=== PATIENT | female | born 1945 | race Caucasian/White ===

== ENCOUNTER → 2018-01-01 | Outpatient (CLI) | payer MEDICARE, OTHER ==
[~2018-01-01] MED LIST: AMOCLA500; QUIN5
== END ==
LOC: LAB SHORT 12:25 → LAB EV 12:25
DX: N39.0 Urinary tract infection, site not specified (principal)
CPT/HCPCS: 87086

== ENCOUNTER → 2018-01-20 | Outpatient (CLI) | payer MEDICARE, OTHER ==
[2018-01-20 17:40] LABS: Appearance, Urine Clear (Clear); Bilirubin, Urine Neg (Neg); Blood, Urine 1+ (Neg); Color, Urine Yellow (P-Yellow); Glucose Qualitative, Urine 4+ (Neg); Ketones, Urine Neg (Neg); Leukocyte Esterase, Urine Neg (Neg); Nitrite, Urine Neg (Neg); Protein, Urine Neg (Neg); Urobilinogen, Urine NORM (Normal)
[2018-01-20 18:05] LABS: Bacteria Not Seen /hpf; Red Blood Cells, Urine 0-2 /hpf (0-2); Squamous Epithelial Cells Few /hpf (Few); White Blood Cells, Urine Not Seen /hpf (0-5)
== END ==
LOC: LAB 16:00 → LAB SHORT 16:00
PROVIDERS: Nurse Practitioner
DX: N39.0 Urinary tract infection, site not specified (principal)
CPT/HCPCS: 81001

== ENCOUNTER → 2019-01-05 | Outpatient (CLI) | payer MEDICARE, OTHER | END | disposition home or self-care (01) | LOC: PLD 10:53 → LAB SHORT 10:53 | DX: L08.89 Other specified local infections of the skin and subcutaneous tissue (principal) | CPT/HCPCS: 88305; 88312 ==

== ENCOUNTER 2019-04-04 10:02 | Day surgery (SDC) | payer MEDICARE, OTHER ==
[~2019-04-04] VITALS: Ht 157.5 cm; Wt 94.0 kg
[~2019-04-04 10:02] MED LIST changes: +Daily Multiple1 EACH PO; +INSULANPEN SC; +LOSA50 PO; +Lipitor20 MG PO; +METO100 PO; +NITR.4SL SL; +NOVOLOG FL100 UNIT/1 SC; +Omega 3 1,0001 EACH PO
== END 2019-04-04 12:35 | disposition home or self-care (01) ==
LOC: ORSCSDS 10:02
PROVIDERS: Internal Medicine Gastroenterology
PROC: 0DBN8ZX Excision of Sigmoid Colon, Via Natural or Artificial Opening Endoscopic, Diagnostic (ICD-10-PCS; principal; 2019-04-04 11:45)
PROC: 0DBL8ZX Excision of Transverse Colon, Via Natural or Artificial Opening Endoscopic, Diagnostic (ICD-10-PCS; principal; 2019-04-04 11:45)
PROC: 0DBH8ZX Excision of Cecum, Via Natural or Artificial Opening Endoscopic, Diagnostic (ICD-10-PCS; principal; 2019-04-04 11:45)
PROC: 0DBK8ZX Excision of Ascending Colon, Via Natural or Artificial Opening Endoscopic, Diagnostic (ICD-10-PCS; principal; 2019-04-04 11:45)
DX: Z12.11 Encounter for screening for malignant neoplasm of colon (principal); D12.0 Benign neoplasm of cecum; D12.2 Benign neoplasm of ascending colon; D12.3 Benign neoplasm of transverse colon; D12.5 Benign neoplasm of sigmoid colon; K57.30 Diverticulosis of large intestine without perforation or abscess without bleeding; K64.8 Other hemorrhoids; E11.9 Type 2 diabetes mellitus without complications; Z86.010 Personal history of colon polyps; Z87.891 Personal history of nicotine dependence; I10 Essential (primary) hypertension; Z79.4 Long term (current) use of insulin; Z79.899 Other long term (current) drug therapy
CPT/HCPCS: 82947; 88305; J2704; J7120

== ENCOUNTER 2020-05-12 17:38 | Inpatient (IN) | payer MEDICARE, OTHER ==
[~2020-05-12] VITALS: Ht 157.5 cm; Wt 102.3 kg
[~2020-05-12 17:38] MED LIST changes: -LOSA50 PO; -Lipitor20 MG PO; -METO100 PO
[2020-05-12 18:20] LABS: BASOPHILS ABSOLUTE AUTO 0.02 K/mm3 (0.00-0.23); BASOPHILS PERCENT AUTO 0 % (0-2); EOSINOPHILS ABSOLUTE AUTO 0.07 K/mm3 (0.00-0.68); EOSINOPHILS PERCENT AUTO 1 % (0-6); Hematocrit 35.2 % (33.0-51.0); Hemoglobin 11.4 g/dL (11.5-16.0); IMMATURE GRAN ABSOLUTE AUTO 0.02 K/mm3 (0.00-0.10); IMMATURE GRAN PERCENT AUTO 0 % (0-1); LYMPHOCYTES ABSOLUTE AUTO 1.52 K/mm3 (0.84-5.20); LYMPHOCYTES PERCENT AUTO 20 % (21-46); MONOCYTES ABSOLUTE AUTO 0.72 K/mm3 (0.16-1.47); MONOCYTES PERCENT AUTO 9 % (4-13); Mean Corpuscular HGB 29.8 pg (26.0-34.0); Mean Corpuscular HGB Conc 32.4 g/dL (31.5-36.5); Mean Corpuscular Volume 92 fL (80-100); Mean Platelet Volume 11.5 fL (9.1-12.4); NEUTROPHILS ABSOLUTE AUTO 5.46 K/mm3 (1.96-9.15); NEUTROPHILS PERCENT AUTO 70 % (41-73); Platelet Count 187 K/mm3 (150-400); RDW Coefficient Variation 13.6 % (11.7-14.2); RDW Standard Deviation 46.3 fL (35.1-46.3); Red Blood Cell Count 3.82 M/mm3 (3.80-5.20); White Blood Cell Count 7.81 K/mm3 (4.00-11.30)
[2020-05-12 18:38] LABS: Alanine Aminotransfer (ALT/SGP 84 U/L (12-78); Albumin, Blood 2.9 g/dL (3.4-5.0); Albumin/Globulin Ratio 0.8 (0.8-1.8); Alk Phos 133 U/L (50-136); Anion Gap 8 mmol/L (6-16); Aspartate Aminotrans (AST/SGOT 45 U/L (12-37); Bilirubin, Total 0.7 mg/dL (0.1-1.0); Blood Urea Nitrogen 29 mg/dL (8-24); Bun/Creatinine Ratio 27.9 (12.0-20.0); CO2, Blood 20 mmol/L (21-32); Calcium, Blood 10.8 mg/dL (8.5-10.1); Chloride, Blood 113 mmol/L (98-108); Creatinine, Blood 1.04 mg/dL (0.40-1.00); Globulin, Blood 3.6 g/dL (2.2-4.0); Glomerular Filtration Rate 55 (60-); Glucose, Blood 205 mg/dL (70-99); Potassium, Blood 3.7 mmol/L (3.5-5.5); Sodium, Blood 141 mmol/L (136-145); Total Protein, Blood 6.5 g/dL (6.4-8.2); Troponin I <0.015 ng/mL (0.000-0.040)
[2020-05-12 19:51] LABS: Source, Urine Clean Catch
[2020-05-12 19:59] LABS: Appearance, Urine Cloudy (Clear); Bilirubin, Urine Neg (Neg); Blood, Urine 2+ (Neg); Color, Urine Yellow (P-Yellow); Glucose Qualitative, Urine 1+ (Neg); Ketones, Urine Neg (Neg); Leukocyte Esterase, Urine 3+ (Neg); Nitrite, Urine Neg (Neg); Protein, Urine 3+ (Neg); Specific Gravity, Urine 1.025 (1.003-1.022); Urobilinogen, Urine NORM (Normal)
[2020-05-12 20:10] LABS: Red Blood Cells, Urine 0-2 /hpf (0-2); Squamous Epithelial Cells Mod /hpf (Few); White Blood Cells, Urine TNTC /hpf (0-5)
[2020-05-12 20:11] LABS: Bacteria Few /hpf
[2020-05-12] MEDS ORDERED: METO100ER PO (20:39)
[2020-05-12] MEDS ORDERED: NOVOLIN 70100 UNIT/4 SC (20:40)
[2020-05-12] MEDS ORDERED: Lipitor20 MG PO (20:41)
[2020-05-12] MEDS ORDERED: HYDCHL25 PO (20:42)
[2020-05-12] MEDS ORDERED: LOSA50 PO (20:43)
[2020-05-12] MEDS ORDERED: Aspir 8181 MG PO (20:45)
[2020-05-12] MEDS ORDERED: POTASSIUM GLUCO99 M1 PO (20:45)
--- NOTE | 2020-05-12 22:25 | NUR ---
ASSUMED CARE NOTE: ASSUMED CARE OF PT AT 2225, RECEVIED REPORT FROM MILAGROS PERRY. PT IS ALERT AND ORIENTEDX4. ABLE TO RECALL RECENT AND REMOTE EVENTS. PT IS IN SR WITH 2ND DEGREE HEART BLOCK, HR IN THE 50'S. BP ELEVATED, MEDS GIVEN PER EMAR. BOWEL TONES ACTIVE IN ALL QUADRANTS. BLE EDEMA X3, NOTED. PT AMBULATED TO TOILET WITH MININAL ASSISTANCE. STEADY ON HER FEET. PT IS ANXIOUS. BED AT LOWEST LEVEL CALL LIGHT WITHIN REACH.
--- NOTE | 2020-05-13 00:59 | NUR ---
CALLED REGARDING ELEVATED BP, ONE TIME ORDER FOR 10MG OF HYDRALIZINE GIVEN. INFORMED DR THAT PT WAS REQUESTING ANXIETY MEDS, ORDERS GIVEN. PT IS ANXIOUS, NO EFFECTIVE COPING SKILLS NOTED.
[2020-05-13 03:51] LABS: BASOPHILS ABSOLUTE AUTO 0.04 K/mm3 (0.00-0.23); BASOPHILS PERCENT AUTO 0 % (0-2); EOSINOPHILS ABSOLUTE AUTO 0.02 K/mm3 (0.00-0.68); EOSINOPHILS PERCENT AUTO 0 % (0-6); IMMATURE GRAN ABSOLUTE AUTO 0.04 K/mm3 (0.00-0.10); IMMATURE GRAN PERCENT AUTO 0 % (0-1); LYMPHOCYTES ABSOLUTE AUTO 1.13 K/mm3 (0.84-5.20); LYMPHOCYTES PERCENT AUTO 9 % (21-46); MONOCYTES ABSOLUTE AUTO 0.79 K/mm3 (0.16-1.47); MONOCYTES PERCENT AUTO 6 % (4-13); Mean Corpuscular HGB 29.6 pg (26.0-34.0); Mean Corpuscular HGB Conc 32.4 g/dL (31.5-36.5); Mean Corpuscular Volume 91 fL (80-100); Mean Platelet Volume 11.4 fL (9.1-12.4); NEUTROPHILS ABSOLUTE AUTO 10.35 K/mm3 (1.96-9.15); NEUTROPHILS PERCENT AUTO 84 % (41-73); Platelet Count 204 K/mm3 (150-400); RDW Coefficient Variation 13.5 % (11.7-14.2); RDW Standard Deviation 45.5 fL (35.1-46.3); Red Blood Cell Count 3.72 M/mm3 (3.80-5.20); White Blood Cell Count 12.37 K/mm3 (4.00-11.30)
[2020-05-13 04:05] LABS: Anion Gap 10 mmol/L (6-16); Blood Urea Nitrogen 26 mg/dL (8-24); Bun/Creatinine Ratio 28.7 (12.0-20.0); CO2, Blood 19 mmol/L (21-32); Calcium, Blood 10.3 mg/dL (8.5-10.1); Chloride, Blood 114 mmol/L (98-108); Creatinine, Blood 0.91 mg/dL (0.40-1.00); Glomerular Filtration Rate >60 (60-); Glucose, Blood 250 mg/dL (70-99); Potassium, Blood 3.5 mmol/L (3.5-5.5); Sodium, Blood 143 mmol/L (136-145)
--- NOTE | 2020-05-13 04:54 | NUR ---
CALLED REGARDING ELEVATED BP. PT'S BP MAINTAINING 180/80'S, PHYSICAN STS THAT IS OKAY FOR NOW. IF BP CONTINUES TO RISE WITHIN AN HOUR, GIVE ANOTHER 10MG OF HYDRALIZINE IV.
--- NOTE | 2020-05-13 06:21 | NUR ---
SHIFT SUMMARY: PT CONTINUES TO HAVE HIGH BLOOD PRESSURE. PT HAS BEEN GIVEN HYDRALIZINE PRN ORDERED, NO OTHER BP MEDS GIVEN. PT IS VERY ANXIOUS, CONSTANTLY ASKING FOR BP READING AND STS " THIS IS BAD, I KNOW THIS IS SERIOUS AND I MIGHT " PT IS GIVEN REASSURANCE THAT WE ARE TAKING CARE OF HER NEEDS. PT HAS NOT SLEPT ALL SHIFT. ATIVAN WAS GIVEN A ONE TIME ORDER THIS SHIFT. PT HAS BEEN GETTING OUT OF BED WITH ONE PERSON ASSIST TO USE THE BEDSIDE TOILET, MINIMAL ASSISTANCE REQUIRED. PT USES CALL LIGHT APPROPRIATLY. BED AT LOWEST LEVEL, CALL LIGHT WITHIN REACH. WILL CONTINUE TO MONITOR PT UNTIL REPORT IS GIVEN TO ONCOMING SHIFT.
[2020-05-13 09:13] LABS: Magnesium, Blood 1.9 mg/dL (1.6-2.4); Thyroid Stimulating Hormone 1.83 uIU/mL (0.360-4.800)
--- NOTE | 2020-05-13 13:04 | NUR ---
Echocardiogram completed.
--- NOTE | 2020-05-13 14:01 | NUR ---
late enrty am note...PT BP ELEVATED NOTED AND PRNS GIVEN. PT VERY ANXIOUS DISPITE EDUCATION AND REASSURANCE. PT DENIES PAIN, SOB, OR DISTRESS OTHER THAN ANXIETY. PT AND CALLED AND PROCEDURE EXPLAINED. PT REMAINS IN 2 DEG HEART BLOCK. PT IS UP TO TOILET WITH ASSISTANCE AND VOIDING.
--- NOTE | 2020-05-13 14:07 | NUR ---
ABOUT 1245 DR MICHELLE IN TO ASSESS PT AND OBTAIN CONSENT FOR PACER 05/14/20. PT ABX GIVEN PO FOR SL UTI. PT IS LESS ANXIOUS WITH IV ATIVAN. 1405 PT JUST IN TO VISIT. WILL FOLLOW.
--- NOTE | 2020-05-13 16:20 | NUR ---
APPROX 1515 DR MICHELLE CALLED AND WILL RUN BNP AND RX BP WITH LASIX IF BNP >100. PT WAS COACHED ON THE EFECTS OF LASIX. PT IS IN THE ROOM AND VISITING. PACER IS PENDING FOR 05/14 BUT NO TIME YET DETERMINED.
--- NOTE | 2020-05-13 18:08 | NUR ---
CALLED AND SPOKE WITH DR MICHELLE AT APPROX. 1745 AND ADDRESSES PT SBP OF 170-[address] MICHELLE WANTS TO DEANA A LITTLE LONGER ON LASIX DOSE AND USE ANTI-ANXIETY MEDS THIS HS AND FOLLOW THIS FOR NOW. PT IS SETTING UP EATING AND DENIES PAIN OR DISTRESS CURRENTLY. HAS ONLY BEEN UP X1 TO VOID POST LASIX AND DR MICHELLE ALSO MADE AWARE OF THIS. HAS BEEN IN ROOM VISITING AND SEEM TO BE A CALMING EFFECT FOR PT. PT INSTRUCTED RE AVALIBILITY OF ANXIETY TONIGHT.
--- NOTE | 2020-05-13 19:00 | NUR ---
ASSUMED CARE NOTE: ASSUMED CARE OF PT AT 1900, RECEVIED REPORT FROM KRISSY PERRY. PT IS ALERT AND ORIENTEDX3. ABLE TO COMMUNICATE NEEDS. PT IS ANXIOUS, DOES FAIRLY WELL WITH REASSURANCE. PT REQUESTING ANXIETY MEDS. PT IS ON RA WITH SPO2 AT 98% LUNG SOUNDS CLEAR T/O. PT IS IN SR WITH 2ND DEGREE HB, HR IN THE 50'S. PT HR LOWERS INTO THE HIGH 40'S WHEN SLEEPING. SBP IN THE 180'S. PT WILL BE NPO AT MIDNIGHT.
--- NOTE | 2020-05-13 21:40 | NUR ---
CALLED REGARDING PT'S INABILITY TO EMPTY BLADDER. PT BECOMES VERY SOB WITH WALKING TO BEDSIDE COMMODE, NO SPO2 CHANGES NOTED WITH AMBULATION. PT STS " IT TAKES IT OUT OF ME" BLADDER SCAN PERFORMED, 298ML IN BLADDER POST VOID. ORDERS FOR LOONEY PLACE, TO MONITOR I AND O'S . 16F LOONEY PLACED, DIFFICULT INSERTION, 400ML OUTPUT WITHIN THE FIRST 15MINUTES. URINE SAMPLE SENT TO LAB.
[2020-05-13 21:56] LABS: Source, Urine Catheter
[2020-05-13 21:58] LABS: Bilirubin, Urine Neg (Neg); Blood, Urine Neg (Neg); Glucose Qualitative, Urine 1+ (Neg); Ketones, Urine 1+ (Neg); Leukocyte Esterase, Urine Neg (Neg); Nitrite, Urine Neg (Neg); Protein, Urine 1+ (Neg); Specific Gravity, Urine 1.015 (1.003-1.022); Urobilinogen, Urine NORM (Normal)
[2020-05-13 21:59] LABS: Appearance, Urine Clear (Clear); Color, Urine Yellow (P-Yellow)
[2020-05-14 03:22] LABS: BASOPHILS ABSOLUTE AUTO 0.04 K/mm3 (0.00-0.23); BASOPHILS PERCENT AUTO 0 % (0-2); EOSINOPHILS ABSOLUTE AUTO 0.02 K/mm3 (0.00-0.68); EOSINOPHILS PERCENT AUTO 0 % (0-6); Hematocrit 34.6 % (33.0-51.0); Hemoglobin 11.3 g/dL (11.5-16.0); IMMATURE GRAN ABSOLUTE AUTO 0.06 K/mm3 (0.00-0.10); IMMATURE GRAN PERCENT AUTO 0 % (0-1); LYMPHOCYTES PERCENT AUTO 10 % (21-46); MONOCYTES PERCENT AUTO 7 % (4-13); Mean Corpuscular HGB 29.9 pg (26.0-34.0); Mean Corpuscular HGB Conc 32.7 g/dL (31.5-36.5); Mean Corpuscular Volume 92 fL (80-100); NEUTROPHILS ABSOLUTE AUTO 11.19 K/mm3 (1.96-9.15); NEUTROPHILS PERCENT AUTO 82 % (41-73); Platelet Count 273 K/mm3 (150-400); RDW Standard Deviation 46.6 fL (35.1-46.3); Red Blood Cell Count 3.78 M/mm3 (3.80-5.20); White Blood Cell Count 13.71 K/mm3 (4.00-11.30)
[2020-05-14 03:41] LABS: Calcium, Blood 11.1 mg/dL (8.5-10.1); Creatinine, Blood 1.36 mg/dL (0.40-1.00); Potassium, Blood 3.8 mmol/L (3.5-5.5)
--- NOTE | 2020-05-14 04:10 | NUR ---
CALLED REGARDING LABS, AND BLOOD PRESSURE, AWAITING FOR CALL BACK
--- NOTE | 2020-05-14 04:14 | NUR ---
SPOKE TO REGARDING SBP IN THE 180-190, NO NEW ORDERS GIVEN DUE TO BP ELEVATION R/T 2ND DEGREE HB. CONTINUE WITH HYDRALYZINE PRN ORDERED
--- NOTE | 2020-05-14 05:56 | NUR ---
SHIFT SUMMARY: SEE PREVIOUS NOTES. NO SIGNIFICANT CHANGES. PT CONTINUES TO HAVE SBP IN THE 180'S, WHEN HYDRALYZINE IS GIVEN SBP DROPS BY 10 POINTS, AWARE. PT GIVEN ATIVAN Q4HR FOR ANXIETY, GOOD EFFECT NOTED. PT HR HAS BEEN IN THE 40'S, WHILE SLEEPING AND WILL ELEVATE INTO THE 60'S. LOONEY WAS PLACED THIS SHIFT, DRAINING TO GRAVITY MAKENNA COLORED URINE. PT REPOSITONS SELF, HAS TO BE REMINDED OF LINES AND TUBES. PT HAS BEEN NPO SINCE MID NIGHT. WILL CONTINUE TO MONITOR PT UNTIL REPORT IS GIVEN TO ONCOMING NURSE.
--- NOTE | 2020-05-14 10:28 | NUR ---
LATE AM NOTE ... PT A/O STATES SHE SLEPT WELL. BP IS SL DOWN NOTED AND WILL FOLLOW. DR MICHELLE IN TO EVALUATE PT AND RECOMMENDING DELAY TO PACER PLACEMENT DUE TO INC. WBC, SL UTI, AND RECENT HX ABX USE FOR PNEUMONIA. PT SETTING UP FEEDING SELF. URINE IS NOTED PER CURRENT CATH AND IS MAKENNA WITH SOME SEDIMENT NOTED. 2 DEGREE HEART BLOCK WITH HR NOTED.
--- NOTE | 2020-05-14 17:38 | NUR ---
PT A/O VISITING WITH . PT U.O. LOW AND NEW ORDER OBTAINED FOR MAINTANCE FLUIDS NS AT 50ML. CBG LEVELS IMPROVING. PT IS NOTED WITH VERY SLIGHT CRACKLES AND IS SL SOB WITH EXERSION. WILL MONITOR. REMAINS 2 DEG. HEART BLOCK WITH HR 50 AND IN TO 40'S WHEN SLEEPING. ANXIETY HAS IMPORVED WITH ATIVAN AND NO DAY SHIFT DOSES NEEDED FOR SLEEP.
--- NOTE | 2020-05-14 19:06 | NUR ---
Per admit trigger, I met with Mrs. Leahy to offer education about ACP. She was very interested in completing an advanced directive. I answered her questions and explained forms. She plans on speaking with spouse about this. Advised I would remain available to assist in completion this hospitalization if she desired.
--- NOTE | 2020-05-14 21:00 | NUR ---
ASSUMED CARE AFTER BEDSIDE REPORT. PT IS ALERT, DENIES DISCOMFORT, ADMITS TO ANXIETY AND ASKS FOR MED TO "HELP HER RELAX". PT IS ON RA AND SATS MID 90'S. NOTED W END EXPIRATORY "GRUNT", AND MILD DSYPNEA W EXERTION. PT DID OWN HS CARE. BP CONT ELEVATED, AN PT MED W HYDRALAZINE ORDERED. MONITOR SHOWS 2ND DEGREE HB, RATE 40'S TO 60. PAS REAPPLIED. LOONEY DRNG CL YELLOW URINE. PLAN FOR PACER IN AM, PT WILL BE NPO AFTER MIDNOC. ENC OFFERED TO PT RE PROCEDURE, AND MED W ATIVAN. CALL LIGHT IN REACH.
--- NOTE | 2020-05-15 00:34 | NUR ---
PT CONT RESTING QUIETLY. CONT W 2ND DEGREE HB, BP ELEVATED EVEN AFTER HYDRALAZINE. CONT TO MONITOR, ENC REST SECONDARY TO ANXIETY. CALL LIGHT NOTED TO BE AT PT SIDE, IN REACH.
[2020-05-15 03:21] LABS: BASOPHILS ABSOLUTE AUTO 0.04 K/mm3 (0.00-0.23); BASOPHILS PERCENT AUTO 0 % (0-2); EOSINOPHILS ABSOLUTE AUTO 0.17 K/mm3 (0.00-0.68); EOSINOPHILS PERCENT AUTO 2 % (0-6); Hematocrit 34.6 % (33.0-51.0); Hemoglobin 10.9 g/dL (11.5-16.0); IMMATURE GRAN ABSOLUTE AUTO 0.04 K/mm3 (0.00-0.10); IMMATURE GRAN PERCENT AUTO 0 % (0-1); LYMPHOCYTES ABSOLUTE AUTO 1.54 K/mm3 (0.84-5.20); LYMPHOCYTES PERCENT AUTO 16 % (21-46); MONOCYTES ABSOLUTE AUTO 0.79 K/mm3 (0.16-1.47); MONOCYTES PERCENT AUTO 8 % (4-13); Mean Corpuscular HGB 28.9 pg (26.0-34.0); Mean Corpuscular HGB Conc 31.5 g/dL (31.5-36.5); Mean Corpuscular Volume 92 fL (80-100); Mean Platelet Volume 10.5 fL (9.1-12.4); NEUTROPHILS ABSOLUTE AUTO 7.34 K/mm3 (1.96-9.15); NEUTROPHILS PERCENT AUTO 74 % (41-73); Platelet Count 241 K/mm3 (150-400); RDW Coefficient Variation 14.1 % (11.7-14.2); RDW Standard Deviation 47.1 fL (35.1-46.3); Red Blood Cell Count 3.77 M/mm3 (3.80-5.20); White Blood Cell Count 9.92 K/mm3 (4.00-11.30)
[2020-05-15 03:39] LABS: Albumin, Blood 2.7 g/dL (3.4-5.0); Albumin/Globulin Ratio 0.8 (0.8-1.8); Bilirubin, Total 0.6 mg/dL (0.1-1.0); Bun/Creatinine Ratio 22.7 (12.0-20.0); Calcium, Blood 11.2 mg/dL (8.5-10.1); Creatinine, Blood 1.54 mg/dL (0.40-1.00); Globulin, Blood 3.3 g/dL (2.2-4.0); Magnesium, Blood 2.2 mg/dL (1.6-2.4); Phosphorus, Blood 2.8 mg/dL (2.5-4.9); Potassium, Blood 3.6 mmol/L (3.5-5.5)
[2020-05-15 03:48] LABS: C-REACTIVE PROTEIN, EXT RANGE 0.872 mg/dL (0.000-0.300)
--- NOTE | 2020-05-15 06:00 | NUR ---
PT AWAKE, RESTLESS, BUT DECLINES ATIVAN. WAS MED W HYDRALAZINE 20MG AT 0324. PAS REMOVED PER PT REQUEST, CO LEGS ITCHING. PT NPO FOR POSSIBLE PACER THIS AM. CONT 2ND DEGREE HB RATE 40-50'S. CALL LIGHT IN REACH.
--- NOTE | 2020-05-15 09:50 | NUR ---
AM NOTE... ASSUMED CARE OF PT APROX 0700, PT IS A&Ox4 AND WAS ADMITTED WITH A TYPE 2 HEART BLOCK, CURRENTLY PT'S HR IS IN THE 40'S-50'S. PT DENIES CHEST PAIN/PRESSURE BUT C/O OF SOB THAT INCREASES W/EXERTION. PT IS HYPERTENSIVE WITH SBP IN 190'S-200'S. PT HAS 1+ EDEMA NOTED TO HER BLE. L/S CLEAR IN THE UPPER LOBES AND DIM IN THE BASES. BT PRESENT AND HYPOACTIVE, ABD IS SOFT AND NONTENDER TO PALP. PT HAS BEEN NPO SINCE MIDNIGHT FOR POSSIBLE PACER PLACEMENT TODAY. DR. MICHELLE AT THE BEDSIDE FOR ASSESSMENT. PER DR. MICHELLE HE WANTS THE PT'S HYPERTENSION BETTER CONTROLLED BEFORE GOING TO THE ENDOSCOPY TECHNICIAN, PT WAS GIVEN HER ORDERED PO MEDICATIONS PER EMAR, DR. MICHELLE ASKED TO BE UPDATED AROUND 12PM WITH PT'S CONDITION. HE ALSO STATED HE WOULD TALK TO THE ENDOSCOPY TECHNICIAN ABOUT AVAILABILITY OF TIME TO DO HER PROCEDURE TODAY VS TOMORROW. PT WAS AGREEABLE WITH THE PLAN OF CARE. CALL LIGHT IN REACH WILL CONTINUE TO MONITOR.
--- NOTE | 2020-05-15 15:24 | NUR ---
pt transfered to medical floor. more alert and still some nausea but airhunger improved with prn meds. reenforced that with good symptom mangement and support may give her a better quality of life.
--- NOTE | 2020-05-15 18:07 | NUR ---
SHIFT SUMMARY... NO ACUTE NEGATIVE CHANGES NOTED THIS SHIFT. PT'S BP HAS BEEN HYPERTENSIVE T/O SHIFT PROVIDERS ARE AWARE, PT'S BP RESPONDS WELL TO 20MG IV HYDRALAZINE. PT'S HR HAS BEEN IN THE 40'S-50'S IN AN 2ND DEGREE TYPE 2 BLOCK. PT SAT ON THE SIDE OF THE BED FOR APROX 15 MINS BUT STATED THAT SHE WAS STARTING TO FEEL "REALLY TIRED" AND THIS RN HELPED HER LAY BACK DOWN, PT WAS ABLE TO GET UP TO THE BSC TO ATTEMPT TO HAVE A BM WITH SBA APROX 1 HOUR LATER . PT BECOMES VERY SHORT OF BREATH WITH ACTIVITY AND THIS IS VERY FRUSTRATING TO THE PT, SHE BECOMES TEARFUL AND ANXIOUS DURING THESE TIMES. PT'S HAS BEEN AT THE BEDSIDE SINCE 1400. PT IS TO BE NPO AFTER MIDNIGHT FOR PACER PLACEMENT TOMORROW AT 0700. PT'S LOONEY IS PATENT AND DRAINED 350MLS OF CLEAR YELLOW URINE TO GRAVITY. CALL LIGHT IN REACH WILL CONTINUE TO MONITOR UNTIL REPORT IS GIVEN TO ONCOMING RN.
--- NOTE | 2020-05-15 21:00 | NUR ---
PT WAS SLEEPING SOUNDLY DURING SHIFT CHANGE AND BEDSIDE REPORT. PT WAS AWAKENED FOR ASSESSMENT AND HS MEDS. PT CALM, PLEASANT AND COOPERATIVE, DENIES CHEST PAIN OR OTHER DISCOMFORT. PT IS ABLE TO REPOSITION SELF IN BED, TURNS SIDE TO SIDE. REFUSED ORAL CARE TONIGHT SAYING SHE HAD DONE THIS EARLIER. DENIES QUESTIONS RE PLAN FOR PACER IN AM. PAS REPLACED, NO SKIN ISSUES. CONT W 2ND DEGREE HB, BP CONT ELEVATED, WILL MED W HYDRALAZINE PRN. PT CONT ON RA, SATS MID 90'S, ENC C&DB. CALL LIGHT IN REACH.
[2020-05-16 03:11] LABS: BASOPHILS ABSOLUTE AUTO 0.06 K/mm3 (0.00-0.23); BASOPHILS PERCENT AUTO 1 % (0-2); EOSINOPHILS ABSOLUTE AUTO 0.33 K/mm3 (0.00-0.68); EOSINOPHILS PERCENT AUTO 4 % (0-6); Hematocrit 32.6 % (33.0-51.0); Hemoglobin 10.4 g/dL (11.5-16.0); IMMATURE GRAN ABSOLUTE AUTO 0.03 K/mm3 (0.00-0.10); IMMATURE GRAN PERCENT AUTO 0 % (0-1); LYMPHOCYTES ABSOLUTE AUTO 2.02 K/mm3 (0.84-5.20); LYMPHOCYTES PERCENT AUTO 22 % (21-46); MONOCYTES ABSOLUTE AUTO 0.83 K/mm3 (0.16-1.47); MONOCYTES PERCENT AUTO 9 % (4-13); Mean Corpuscular HGB 29.4 pg (26.0-34.0); Mean Corpuscular HGB Conc 31.9 g/dL (31.5-36.5); Mean Corpuscular Volume 92 fL (80-100); Mean Platelet Volume 10.8 fL (9.1-12.4); NEUTROPHILS ABSOLUTE AUTO 5.86 K/mm3 (1.96-9.15); NEUTROPHILS PERCENT AUTO 64 % (41-73); Platelet Count 247 K/mm3 (150-400); RDW Coefficient Variation 14.2 % (11.7-14.2); RDW Standard Deviation 48.3 fL (35.1-46.3); Red Blood Cell Count 3.54 M/mm3 (3.80-5.20); White Blood Cell Count 9.13 K/mm3 (4.00-11.30)
[2020-05-16 03:27] LABS: Bun/Creatinine Ratio 21.5 (12.0-20.0); Calcium, Blood 10.4 mg/dL (8.5-10.1); Creatinine, Blood 1.49 mg/dL (0.40-1.00); Potassium, Blood 3.7 mmol/L (3.5-5.5)
--- NOTE | 2020-05-16 04:00 | NUR ---
SLEEPING WELL, AWAKE NOW, BP ELEVATED AND MED W HYDRALAZINE. PT REQUESTING ATIVAN, AND MEDICATED. NO OTHER CHANGES. CALL LIGHT IN REACH.
--- NOTE | 2020-05-16 06:34 | NUR ---
WATCHING TV. CONT TO DENY DISCOMFORT. AWAKE CALL TO STILL OPERATOR WHISKEY. CALL LIGHT IN REACH.
[2020-05-16 08:38] LABS: Influenza A, PCR Negative (NEGATIVE); Influenza B, PCR Negative (NEGATIVE); Resp Syncytial Virus, PCR Negative (NEGATIVE); SARS-Cov-2 (COVID-19) PCR, MMC Negative (NEGATIVE)
--- NOTE | 2020-05-16 11:58 | NUR ---
Pt off the unit at [facility].
--- NOTE | 2020-05-16 17:50 | NUR ---
SHIFT NOTE PT WAS TRANSFERED FROM ICU THIS AM. PT WENT TO [facility] FOR DUAL CHAMBER PACEMAKER PLACEMENT AT [facility] TODAY. PT RETURNED WITH SORENESS TO LT SHOULDER AND CHEST WALL AT THE SITE OF INSERTION. GAUZE AND CLEAR DRESSING IN PLACE. NO SWELLING OR HEMATOMA NOTED TO SITE. PT A/O X4. HTN NOTED HAS BEEN MEDICATED FOR HTN WITH SOME IMPROVEMENT
[2020-05-17 03:54] LABS: BASOPHILS ABSOLUTE AUTO 0.05 K/mm3 (0.00-0.23); BASOPHILS PERCENT AUTO 1 % (0-2); EOSINOPHILS PERCENT AUTO 6 % (0-6); Hematocrit 34.5 % (33.0-51.0); Hemoglobin 11.1 g/dL (11.5-16.0); IMMATURE GRAN ABSOLUTE AUTO 0.03 K/mm3 (0.00-0.10); IMMATURE GRAN PERCENT AUTO 0 % (0-1); LYMPHOCYTES ABSOLUTE AUTO 1.69 K/mm3 (0.84-5.20); LYMPHOCYTES PERCENT AUTO 20 % (21-46); MONOCYTES ABSOLUTE AUTO 0.79 K/mm3 (0.16-1.47); MONOCYTES PERCENT AUTO 9 % (4-13); Mean Corpuscular HGB Conc 32.2 g/dL (31.5-36.5); Mean Corpuscular Volume 93 fL (80-100); Mean Platelet Volume 10.6 fL (9.1-12.4); NEUTROPHILS ABSOLUTE AUTO 5.52 K/mm3 (1.96-9.15); NEUTROPHILS PERCENT AUTO 64 % (41-73); Platelet Count 253 K/mm3 (150-400); RDW Coefficient Variation 14.1 % (11.7-14.2); RDW Standard Deviation 48.8 fL (35.1-46.3); White Blood Cell Count 8.58 K/mm3 (4.00-11.30)
[2020-05-17 04:14] LABS: Albumin, Blood 2.7 g/dL (3.4-5.0); Albumin/Globulin Ratio 0.8 (0.8-1.8); Bilirubin, Total 0.7 mg/dL (0.1-1.0); Bun/Creatinine Ratio 21.2 (12.0-20.0); Calcium, Blood 10.9 mg/dL (8.5-10.1); Creatinine, Blood 1.51 mg/dL (0.40-1.00); Globulin, Blood 3.5 g/dL (2.2-4.0); Phosphorus, Blood 2.8 mg/dL (2.5-4.9); Potassium, Blood 3.9 mmol/L (3.5-5.5); Total Protein, Blood 6.2 g/dL (6.4-8.2)
--- NOTE | 2020-05-17 06:20 | NUR ---
SHIFT SUMMARY PT A&O; VSS; STATUS POST PACER, PACED ON TELE; PT C/O OF DISCOMFORT AT OP SITE, ICE PACK BROUGHT TO PT, TYLENOL ADMINISTERED X 2 THIS SHIFT; O2 SATS >93 ON RA; PT SLEPT SEVERAL HOURS; LOONEY PATENT & DRAINING CLEAR YELLOW; IMAGING TO TAKE PT TO POST PACER XRAY; NO DISTRESS NOTED; CALL LIGHT IN REACH; BED IN LOWEST POSITION; WILL CONTINUE TO MONITOR CLOSELY UNTIL HAND OFF TO DAY SHIFT RN.
--- NOTE | 2020-05-17 11:52 | NUR ---
PT REFUSED VITALS AND INSULIN PT DEMANDS THAT HOSPITALIST ARRIVE "NOW" TO D/C OR SHE IS LEAVING STS SHE WANTS "LEFT ALONE" THEN BEGINS SOBBING STS SHE IS "AT MY BREAKING POINT YOU GUYS HAVE DONE SO MUCH TO ME"
[2020-05-17] MEDS ORDERED: ACET325 PO (12:57)
[2020-05-17] MEDS ORDERED: AMLO10 PO (12:58)
[2020-05-17] MEDS ORDERED: CEFP200 PO (12:59)
[2020-05-17] MEDS ORDERED: OMEGA-3 FISH O1 EAC6 PO (13:02)
[2020-05-17] MEDS ORDERED: HYDR10 PO (13:03)
[2020-05-17] MEDS ORDERED: ONE DAILY ESS400 MCG PO (13:04)
[2020-05-17] MEDS ORDERED: MIRALAX17 GM PO (13:05)
[2020-05-17] MEDS ORDERED: PROBIOTIC1 EA13 PO (13:06)
--- NOTE | 2020-05-17 13:39 | NUR ---
PT'S IV REMOVED AND PRESSURE DRESSING, IV WAS INTACT. URINARY CATH REMOVED INTACT. PT PROVIDED WITH DC EDUCATION AND MEDICATION SIDE EFFECTS, PT AND FAMILY EXPRESSED UNDERSTANDING OF DC EDUCATION.
[2020-05-24 20:11] LABS: 25-HYDROXY, VITAMIN D 46 ng/mL (.); 25-HYDROXY, VITAMIN D-2 <1.0 ng/mL (.); 25-HYDROXY, VITAMIN D-3 46 ng/mL (.)
== END 2020-05-17 13:40 | disposition home or self-care (01) | DRG 243 ==
LOC: ER 17:38 → ICUE 17:39 → ICUW 17:39 → ICUE 22:31 → PCU 05-16 07:30
PROVIDERS: Emergency Medicine; Family Medicine; Hospitalist; Internal Medicine; Internal Medicine Cardiovascular Disease; Student in an Organized Health Care Education/Training Program; ADMIT Family Medicine
PROC: 0JH606Z Insertion of Pacemaker, Dual Chamber into Chest Subcutaneous Tissue and Fascia, Open Approach (ICD-10-PCS; principal; 2020-05-16)
PROC: 02H63JZ Insertion of Pacemaker Lead into Right Atrium, Percutaneous Approach (ICD-10-PCS; 2020-05-16)
PROC: 02HK3JZ Insertion of Pacemaker Lead into Right Ventricle, Percutaneous Approach (ICD-10-PCS; 2020-05-16)
DX: I44.1 Atrioventricular block, second degree (principal); I16.1 Hypertensive emergency; N39.0 Urinary tract infection, site not specified; N17.9 Acute kidney failure, unspecified; Z79.82 Long term (current) use of aspirin; Z79.4 Long term (current) use of insulin; Z87.891 Personal history of nicotine dependence; I25.10 Atherosclerotic heart disease of native coronary artery without angina pectoris; Z95.1 Presence of aortocoronary bypass graft; Z66 Do not resuscitate; E83.52 Hypercalcemia; E66.01 Morbid (severe) obesity due to excess calories; Z20.828 Contact with and (suspected) exposure to other viral communicable diseases; E11.69 Type 2 diabetes mellitus with other specified complication; Z68.39 Body mass index [BMI] 39.0-39.9, adult; I10 Essential (primary) hypertension; K59.00 Constipation, unspecified; I45.3 Trifascicular block
CPT/HCPCS: 0241U; 33208; 36415; 51703; 71045; 71046; 80048; 80053; 81001; 82947; 83735; 83880; 83970; 84100; 84145; 84443; 84484; 85025; 85651; 86140; 87086; 93005; 93010; 93306; 99152; 99153; 99285-25; A9270; A9270-GY; C1781; C1785; C1894; C1898; J0360; J1644; J1815; J1940; J2060; J2250; J3010; J3370; J7030; J7040

== ENCOUNTER → 2021-02-13 | Outpatient (CLI) | payer MEDICARE, OTHER ==
[~2021-02-13] MED LIST changes: +ACET325 PO; +AMLO10 PO; +Aspir 8181 MG PO; +CEFP200 PO; +HYDCHL25 PO; +HYDR10 PO; +LOSA50 PO; +Lipitor20 MG PO; +METO100ER PO; +MIRALAX17 GM PO; +NOVOLIN 70100 UNIT/4 SC; +OMEGA-3 FISH O1 EAC6 PO; +ONE DAILY ESS400 MCG PO; +POTASSIUM GLUCO99 M1 PO; +PROBIOTIC1 EA13 PO
== END | disposition home or self-care (01) ==
LOC: LAB 12:44 → LAB SHORT 12:44
DX: C44.319 Basal cell carcinoma of skin of other parts of face (principal)
CPT/HCPCS: 88305

== ENCOUNTER → 2021-03-21 | Outpatient (CLI) | payer MEDICARE, OTHER | LOC: LAB 12:24 → LAB SHORT 12:24 | DX: D48.5 Neoplasm of uncertain behavior of skin (principal); L72.12 Trichodermal cyst | CPT/HCPCS: 88304 ==

== ENCOUNTER → 2021-04-15 | Outpatient (CLI) | payer MEDICARE, OTHER | LOC: LAB 17:17 → LAB SHORT 17:17 | DX: R30.0 Dysuria (principal); Z88.0 Allergy status to penicillin; Z88.8 Allergy status to other drugs, medicaments and biological substances; Z88.1 Allergy status to other antibiotic agents | CPT/HCPCS: 87086 ==

== ENCOUNTER → 2021-11-27 | Outpatient (CLI) | payer MEDICARE, OTHER | END | disposition home or self-care (01) | LOC: LAB SHORT 12:47 → LAB 12:47 | DX: E11.65 Type 2 diabetes mellitus with hyperglycemia (principal); E11.29 Type 2 diabetes mellitus with other diabetic kidney complication; E11.22 Type 2 diabetes mellitus with diabetic chronic kidney disease | CPT/HCPCS: 87086 ==

== ENCOUNTER 2024-04-20 08:07 | Day surgery (SDC) | payer MEDICARE, OTHER ==
[2024-04-20] VITALS (17 sets, daily range): BP systolic 94–180; BP diastolic 46–101
[~2024-04-20] VITALS: Ht 154.9 cm; Wt 89.0 kg
[~2024-04-20 08:07] MED LIST changes: +ALBU2.5V5 INH; +ALPR.25 PO; +Lactated Ringer's 1,000 ML IV SCH; +METF500 PO; +METO50ER PO; +TRESIBA FL100 UNIT/2 SC; +propofoL 20 ML IV ONE
--- NOTE | 2024-04-20 10:11 | NUR ---
04/20/24 1011 Elvia King CONFIRMED AND REVIEWED H&P, MEDCICATIONS, ALLERGIES, MEDICAL HISTORY, RESPIRATORY HISTORY, VITAL SIGNS, 3-LEAD EKG, CONSENTS, AND PHYSICIAN ORDERS. PATIENT CONFIRMS NPO STATUS AND AGREES WITH SCHEDULED PROCEDURE. MONITOR INTACT WITH CONTINUOUS PULSE OXIMETRY, CAPNOGRAPHY, 3-LEAD EKG, INTERMITTENT BP. SUPPLEMENTAL O2 TO BE TITRATED THROUGHOUT PROCEDURE TO MAINTAIN O2 SATURATION ABOVE 90%. PATIENT DETERMINED TO BE ASA APPROPRIATE FOR PROPOFOL SEDATION PRIOR TO START OF PROCEDURE BY DR. ANDERSON
--- NOTE | 2024-04-20 11:21 | NUR ---
DISCHARGE NOTE PT A&OX4, BREATHING RA, NO COMPLAINTS, TOLERATING PO INTAKE. ABDOMEN SOFT AND NON TENDER. DENTURE GIVEN BACK TO PT. Patient up to Ambulate independently. Gait steady. Discharge instructions reviewed with patient. Patient verbalizes understanding. Copy given to patient to take home. Discharged via wheelchair to private car for ride home.
== END 2024-04-20 11:28 | disposition home or self-care (01) ==
LOC: ORSCMMR 08:07 → ORD 09:30 → ORSCMMR 09:30
PROVIDERS: Internal Medicine Gastroenterology
PROC: 0DBN8ZX Excision of Sigmoid Colon, Via Natural or Artificial Opening Endoscopic, Diagnostic (ICD-10-PCS; principal; 2024-04-20 09:30)
DX: Z12.11 Encounter for screening for malignant neoplasm of colon (principal); Z86.0101 Personal history of adenomatous and serrated colon polyps; D12.5 Benign neoplasm of sigmoid colon; K63.5 Polyp of colon; K57.30 Diverticulosis of large intestine without perforation or abscess without bleeding; Z90.49 Acquired absence of other specified parts of digestive tract; J44.9 Chronic obstructive pulmonary disease, unspecified; I10 Essential (primary) hypertension; E11.9 Type 2 diabetes mellitus without complications; Z79.84 Long term (current) use of oral hypoglycemic drugs; Z79.899 Other long term (current) drug therapy
CPT/HCPCS: 82947; 88305; J2704; J7120

== ENCOUNTER 2024-11-15 07:42 | Day surgery (SDC) | payer MEDICARE, OTHER ==
[2024-11-15] VITALS (11 sets, daily range): BP systolic 139–170; BP diastolic 60–117
[~2024-11-15] VITALS: Ht 155.2 cm; Wt 90.0 kg
[~2024-11-15 07:42] MED LIST changes: -ALBU2.5V5 INH; +ALBU90OI INH; +C COMPLEX1000 M1 PO; +CeFAZolin Sodium 2,000 MG in NS 100 ML IV SCH; +ERGO400 PO; +LOSARTAN POTAS100 M1 PO; -Lactated Ringer's 1,000 ML IV SCH; +MULTI-VITAMIN1 EAC2 PO; +NORVASC10 MG PO; +NYAMYC15 G1 TOP; +POTA10T PO; -propofoL 20 ML IV ONE
[2024-11-15] MEDS ORDERED: CeFAZolin Sodium 2,000 MG in NS 100 ML IV SCH (08:25)
[2024-11-15] MEDS ORDERED: Bupivacaine 0.5% HCl 5 MG/ML 30MLVIAL ONE (08:51)
--- NOTE | 2024-11-15 08:58 | NUR ---
History, Chart, Medications and Allergies reviewed before start of procedure. Patient up to Ambulate independently. Gait steady. Pre-Op teaching done. Pt verbalizes understanding. Patient confirms NPO status and agrees with scheduled surgery. Patient reports completing Chlorhexadine shower X2 prior to admission to hospital. Surgical site prepped with 2% Chlorhexidine cloth wipe. Patient States Post-Procedure ride home has been arranged.
[2024-11-15] MEDS ORDERED: Citric Acid/Sodium Citrate 30 ML BTL ONE (09:05)
[2024-11-15] MEDS ORDERED: FentaNYL Citrate 50 MCG/ML 2 ML Injection ONE ×3 (09:06→10:07)
[2024-11-15] MEDS ORDERED: Labetalol HCL 5 MG/ML 4ML Injection (Single Dose) ONE ×3 (10:40→11:23)
[2024-11-15] MEDS ORDERED: Ondansetron HCl 2 MG / ML 2ML Vial ONE (10:57)
[2024-11-15] MEDS ORDERED: HYDROcodone 5-APAP 325 TAB PO PRN (11:45)
--- NOTE | 2024-11-15 13:02 | NUR ---
TO STEP POST LUMPECTOMY. REPORTS 3-4/10 PAIN RIGHT BREAST. GAUZE DRESSING CDI. BINDER IN PLACE. DENIES NAUSEA, SOB. DECLINES PO INTAKE AT THIS TIME. DROWSY, AWAKES EASILY TO VERBAL STIMULATION. SPOUSE AT BEDSIDE, VERBALIZED UNDERSTANDING OF DC INSTRUCTIONS, FOLLOW UP, WOUND CARE, MEDICATIONS. PT WITH SCRIPT FOR PAIN ALREADY AT HOME. DECLINES PO PAIN MEDS AT THIS TIME, WILL TAKE ONCE HOME. DRESSED AT BEDSIDE, STEADY GAIT. DC'D IV INTACT. DC'D VIA WC IN STABLE CONDITION TO PRIVATE CAR WITH CYLINDER MACHINE OPERATOR.
== END 2024-11-15 13:09 | disposition home or self-care (01) ==
LOC: ORSCMMR 07:42 → NM 07:42
PROVIDERS: Surgery
PROC: 0HBT0ZZ Excision of Right Breast, Open Approach (ICD-10-PCS; principal; 2024-11-15 09:00)
PROC: 07B50ZX Excision of Right Axillary Lymphatic, Open Approach, Diagnostic (ICD-10-PCS; principal; 2024-11-15 09:00)
DX: C50.911 Malignant neoplasm of unspecified site of right female breast (principal); D36.0 Benign neoplasm of lymph nodes; Z17.0 Estrogen receptor positive status [ER+]; Z17.21 Progesterone receptor positive status; Z17.32 Human epidermal growth factor receptor 2 negative status; I10 Essential (primary) hypertension; E11.9 Type 2 diabetes mellitus without complications; I25.10 Atherosclerotic heart disease of native coronary artery without angina pectoris; J44.9 Chronic obstructive pulmonary disease, unspecified; Z79.4 Long term (current) use of insulin; Z79.84 Long term (current) use of oral hypoglycemic drugs; Z79.899 Other long term (current) drug therapy; Z79.82 Long term (current) use of aspirin; Z95.0 Presence of cardiac pacemaker; Z87.891 Personal history of nicotine dependence
CPT/HCPCS: 38792; 82947; 88307; 88342; A9270; A9520; J0690; J2405; J2704; J3010; J7120; Q9968